=== PATIENT | female | born 1990 | race Caucasian/White ===

== ENCOUNTER 2016-12-13 18:39 | Emergency (ER) | payer OTHER ==
[~2016-12-13 18:39] MED LIST: CELEXA20 M1 PO; DEPO-PROVER150 MG/ML; MOTRIN600 MG PO; NO MEDS
[2016-12-13] MEDS ORDERED: ALBUTEROL2.5 MG/3 M INH (19:32)
[2016-12-13] MEDS ORDERED: PROAIR HFA8.5 GM IH (19:33)
[2016-12-13] MEDS ORDERED: BENTYL10 M1 PO (19:33)
[2016-12-13] MEDS ORDERED: PRENATAL-U CAPS1 CAP PO (19:33)
[2016-12-13 19:59] LABS: BASO % 0.2 % (0-2); EOSINOPHIL ABSOLUTE COUNT 0.1 tho/cmm (0.0-0.7); HCT-HEMATOCRIT 42.2 % (34.0-49.0); HGB-HEMOGLOBIN 14.6 gm/dl (12.0-15.5); IMMATURE GRANULOCYTES ABSOLUTE 0.02 tho/cmm (0-0.03); IMMATURE GRANULOCYTES PERCENT 0.2 % (0-0.3); LYMPH % 24.9 % (20-45); LYMPH ABSOLUTE COUNT 2.4 tho/cmm (0.8-4.5); MCHC MEAN CORPUSCULAR HGB CONC 34.6 % (32.0-36.0); MCV (MEAN CELL VOLUME) 86.7 fl (82.0-96.0); MEAN PLATELET VOLUME 11.3 cmc (9.4-12.4); MONO % 4.9 % (0-12); MONOCYTE ABSOLUTE COUNT 0.5 tho/cmm (0.0-1.2); NEUTROPHIL ABSOLUTE COUNT 6.7 tho/cmm (1.6-8.0); NEUTROPHIL-AUTOMATED 6.7 tho/cmm (1.6-8.0); NEUTROPHILS % 68.8 % (40-80); PLATELET COUNT 201 tho/cmm (150-450); RED BLOOD COUNT 4.87 mil/cmm (4.00-5.20); RED CELL DISTRIBUTION WIDTH 12.5 % (12.4-16.4); WHITE BLOOD COUNT 9.8 tho/cmm (4.0-10.0)
[2016-12-13 20:02] LABS: URINE APPEARANCE HAZY; URINE BILIRUBIN NEGATIVE (NEG); URINE BLOOD NEGATIVE (NEG); URINE COLOR YELLOW; URINE GLUCOSE (UA) NEGATIVE (NEG); URINE KETONE MODERATE (NEG); URINE LEUKOCYTE ESTERASE NEGATIVE (NEG); URINE NITRITE NEGATIVE (NEG); URINE PROTEIN NEGATIVE (NEG); URINE SPECIFIC GRAVITY 1.015 (1.003-1.030)
[2016-12-13 20:07] LABS: ANION GAP 8 mmol/L (0-20); BLOOD UREA NITROGEN 11 mg/dl (6-24); CALCIUM 8.8 mg/dl (8.5-10.5); CARBON DIOXIDE-VENOUS 28 mmol/L (22-32); CHLORIDE 108 mmol/l (96-110); CREATININE 0.83 mg/dl (0.50-1.10); GLUCOSE 78 mg/dL (70-110); POTASSIUM 3.6 mmol/L (3.7-5.1); SODIUM 140 mmol/L (135-145); eGFR VALUE FOR BLACK >90 mL/Min
[2016-12-13 20:12] LABS: PREGNANCY-SERUM NEGATIVE (NEGATIVE)
[2016-12-13] MEDS ORDERED: IBUPROFEN600 M1 PO (21:11)
[2016-12-13] MEDS ORDERED: OXYCODONE-ACET1 EAC3 PO (21:11)
== END 2016-12-13 21:40 ==
LOC: EDMED 18:39
PROVIDERS: Emergency Medicine
DX: N83.201 Unspecified ovarian cyst, right side (principal)
CPT/HCPCS: J1170; J1885; J7030

== ENCOUNTER 2017-06-17 12:46 | Emergency (ER) | payer SELFPAY ==
[~2017-06-17] VITALS: Ht 170.2 cm; Wt 64.9 kg
[~2017-06-17 12:46] MED LIST changes: +ALBUTEROL2.5 MG/3 M INH; +BENTYL10 M1 PO; +IBUPROFEN600 M1 PO; +OXYCODONE-ACET1 EAC3 PO; +PRENATAL-U CAPS1 CAP PO; +PROAIR HFA8.5 GM IH
[2017-06-17] MEDS ORDERED: VENTOLIN HFA18 G2 PO (12:58)
[2017-06-17 13:38] LABS: BASO % 0.1 % (0-2); EOS % 0.5 % (0-7); HCT-HEMATOCRIT 44.1 % (34.0-49.0); HGB-HEMOGLOBIN 15.5 gm/dl (12.0-15.5); IMMATURE GRANULOCYTES ABSOLUTE 0.01 tho/cmm (0-0.03); IMMATURE GRANULOCYTES PERCENT 0.1 % (0-0.3); LYMPH % 12.8 % (20-45); MCH (MEAN CORPUSCULAR HGB) 30.7 pg (28.0-32.0); MCHC MEAN CORPUSCULAR HGB CONC 35.1 % (32.0-36.0); MCV (MEAN CELL VOLUME) 87.3 fl (82.0-96.0); MEAN PLATELET VOLUME 10.7 cmc (9.4-12.4); MONOCYTE ABSOLUTE COUNT 0.7 tho/cmm (0.0-1.2); NEUTROPHIL ABSOLUTE COUNT 6.4 tho/cmm (1.6-8.0); NEUTROPHIL-AUTOMATED 6.4 tho/cmm (1.6-8.0); NEUTROPHILS % 78.5 % (40-80); PLATELET COUNT 196 tho/cmm (150-450); RED BLOOD COUNT 5.05 mil/cmm (4.00-5.20); RED CELL DISTRIBUTION WIDTH 12.6 % (12.4-16.4); WHITE BLOOD COUNT 8.1 tho/cmm (4.0-10.0)
[2017-06-17 13:56] LABS: URINE BILIRUBIN NEGATIVE (NEG); URINE BLOOD NEGATIVE (NEG); URINE GLUCOSE (UA) NEGATIVE (NEG); URINE KETONE NEGATIVE (NEG); URINE LEUKOCYTE ESTERASE NEGATIVE (NEG); URINE NITRITE NEGATIVE (NEG); URINE PROTEIN NEGATIVE (NEG); URINE SPECIFIC GRAVITY 1.005 (1.003-1.030)
[2017-06-17 13:57] LABS: ALB/GLOB RATIO 1.1 (0.8-2.0); ALBUMIN 4.4 g/dl (3.5-5.0); ALKALINE PHOSPHATASE 87 U/L (33-138); ALT/SGPT 19 U/L (12-78); ANION GAP 9 mmol/L (0-20); AST/SGOT 21 U/L (10-40); BILIRUBIN,TOTAL 0.5 mg/dl (0-1.5); BLOOD UREA NITROGEN 9 mg/dl (6-24); CALCIUM 8.9 mg/dl (8.5-10.5); CARBON DIOXIDE-VENOUS 28 mmol/L (22-32); CHLORIDE 107 mmol/l (96-110); CREATININE 0.98 mg/dl (0.50-1.10); GLUCOSE 91 mg/dL (70-110); LIPASE 163 U/L (73-393); POTASSIUM 3.8 mmol/L (3.7-5.1); SODIUM 140 mmol/L (135-145); eGFR VALUE FOR BLACK >90 mL/Min
[2017-06-17 14:00] LABS: URINE APPEARANCE CLEAR; URINE COLOR YELLOW
[2017-06-17] MEDS ORDERED: SUPREP BOWEL P354 ML PO (15:04)
[2017-06-17] MEDS ORDERED: ESTRADIOL0.5 M2 PO (15:07)
[2017-06-17] MEDS ORDERED: ZOFRAN ODT4 MG PO (16:14)
[2017-06-17] MEDS ORDERED: NORCO 5-325 TA1 EACH PO (16:14)
[2017-06-17] MEDS ORDERED: CBD CAPSULE PO (16:21)
== END 2017-06-17 16:40 ==
LOC: EDMED 12:46
PROVIDERS: Nurse Practitioner Family
DX: R11.2 Nausea with vomiting, unspecified (principal); R19.7 Diarrhea, unspecified; F17.210 Nicotine dependence, cigarettes, uncomplicated; R10.9 Unspecified abdominal pain
CPT/HCPCS: J2270; J2405; J7030; Q9967